=== PATIENT | male | born 1935 | race Two or more races ===

== ENCOUNTER 2020-05-24 23:07 | Emergency (ER) | payer BC, MEDICAID ==
[~2020-05-24] VITALS: Ht 190.5 cm; Wt 106.6 kg
[~2020-05-24 23:07] MED LIST: AMLO5TAB4 PO; ASPI-1393 PO; CLE150 PO; DOCU50CA3 PO; FLUT16SP24 NS; GLIM2TAB58 PO; METO-442 PO; PRO40 PO; SIME80TA PO; SIMV40TA2 PO
[2020-05-24 23:30] VITALS: BP_SYST 193
== END 2020-05-25 | disposition left against medical advice (07) ==
LOC: SED 23:07
DX: I10 Essential (primary) hypertension (principal); E11.9 Type 2 diabetes mellitus without complications; Z53.21 Procedure and treatment not carried out due to patient leaving prior to being seen by health care provider
CPT/HCPCS: 99281